=== PATIENT | female | born 1960 ===

== ENCOUNTER → 2018-10-01 09:10 | Outpatient (CLI) | payer OTHER, SELFPAY ==
--- NOTE | 2018-10-01 09:00 | DI.MG.S_ITS ---
Patient Name: KIT VAZQUEZ date: 1960 Sex: F Attending Physician: Maria G Indications: Date: 10/01/2018 09:35 At the request of: KEMI CARRIZALES Procedure: MM screening mammo BI BILATERAL DIGITAL SCREENING MAMMOGRAM 3D/2D WITH CAD: 10/01/2018 CLINICAL: Routine screening. Comparison is made to exams dated: 08/29/2017 mammogram, 07/12/2016 mammogram, and 06/13/2015 mammogram - [facility]. The tissue of both breasts is heterogeneously dense. This may lower the sensitivity of mammography. Current study was also evaluated with a Computer Aided Detection (CAD) system. There are benign calcifications in the left breast. No significant masses, calcifications, or other findings are seen in either breast. There has been no significant interval change. IMPRESSION: There is no mammographic evidence of malignancy. A 1 year screening mammogram is recommended. This exam was interpreted at Station ID: [id number]. NOTE: For mammograms, a report in lay terms will be sent to the patient. Approximately 15% of breast malignancies will not be visualized mammographically. In the management of a palpable breast mass, a negative mammogram must not discourage biopsy of a clinically suspicious lesion. Electronically Signed By: Manjeet schafer/guillermo:10/01/2018 10:09:18 copy to: KIT RODRIGUEZ letter sent: Normal Exam ACR BI-RADS Category 2: Benign Finding(s) 3342F Continued Report - Page 2 of 2 Patient Name: KIT VAZQUEZ date: 1960 Sex: F Attending Physician: Maria G Indications: Date: 10/01/2018 09:35 At the request of: KEMI CARRIZALES Procedure: MM screening mammo BI
== END ==
PROVIDERS: PCP Family Medicine; Visit Provider Family Medicine
DX: Z12.31 Encounter for screening mammogram for malignant neoplasm of breast (principal)
CPT/HCPCS: 77063; 77067

== ENCOUNTER 2019-01-24 14:17 | Emergency (ER) | payer OTHER, SELFPAY ==
[2019-01-24 14:52] VITALS: BP 120/79; PULSE 64; RESP 15; O2SAT 100
[2019-01-24 14:54] VITALS: BP 132/70; PULSE 64; RESP 15; TEMP 36.4; O2SAT 100
--- NOTE | 2019-01-24 15:03 | ED.WOUNDLAC ---
HPI - Wound/Laceration General Chief Complaint: Wound/Laceration Stated Complaint: Sliced opened pointer finger LT hand Time Seen by Provider: 01/24/19 15:01 Source: patient Mode of arrival: ambulatory Limitations: no limitations History of Present Illness HPI narrative: 58-year-old female comes to the emergency with complaint of avulsion injury to her 2nd finger on her left hand. 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 She has no numbness, she has no weakness. She has full range of motion. She states she has done similar injury in the past states her tetanus is up-to-date as the last 6-12 months. She states it is not particularly painful at this time. She denies any other injuries. She does take Plavix because of a heart attack. She does not have any stents. She denies any allergies. Related Data Home Medications Medication Instructions Recorded Confirmed atorvastatin 10 mg tablet 10 mg PO DAILY 10/20/18 10/20/18 clopidogrel 75 mg tablet 75 mg PO DAILY 10/20/18 10/20/18 hydroxychloroquine 200 mg tablet 200 mg PO DAILY tab 10/20/18 10/20/18 metoprolol tartrate 25 mg tablet 25 mg PO DAILY tab 10/20/18 10/20/18 nitroglycerin 0.4 mg sublingual 0.4 mg SL Q5-15M PRN 10/20/18 10/20/18 tablet Previous Rx's Medication Instructions Recorded clonazepam 0.5 mg tablet 0.5 mg PO BID PRN #10 tab 10/20/18 doxycycline hyclate 100 mg PO BID #20 cap 01/24/19 Allergies Allergy/AdvReac Type Severity Reaction Status Date / Time paraben Allergy Intermediate HIVES Unverified 10/20/18 10:59 Penicillins Allergy Intermediate hives Unverified 10/20/18 10:59 morphine Allergy Mild Unverified 10/20/18 10:59 Review of Systems Review of Systems ROS Unobtainable: All systems reviewed & are unremarkable except as noted in HPI and below Constitutional Denies weakness Musculoskeletal Reports as per HPI, Denies limited range of motion, Denies muscle weakness, Denies numbness, Denies stiffness, Denies tingling and Reports other (Avulsion injury right finger) Integumentary/Breasts Denies erythema, Denies rash, Denies unusual bruising and Reports wounds Neurologic Denies numbness, Denies sensory deficit, Denies tingling, Denies paresthesias and Denies weakness [facility] Medical History (Updated 01/24/19 @ 15:12 by Janie Glover DO) Myocardial infarction (Chronic) Surgical History History of angioplasty Status post appendectomy Status post hysterectomy Status post knee surgery Social History Smoking Status: Never smoker Social History Smoking Status: Never smoker Exam Narrative Exam Narrative: GENERAL: Alert and oriented x three, EXTREMITIES: Normal range of motion, no clubbing or edema. Neurovascularly intact. patient has an avulsion on the 2nd finger of her left hand. On the side of the finger between the 1st and 2nd distal joints. It is into the subcutaneous tissue, there is no bone or tendon involvement. Patient has full range of motion, she has normal sensation distally with cap refill less than 2 seconds. Area does bleed unless pressure is applied. NEUROLOGICAL: Cranial nerves II through XII grossly intact. Moving all extremities SKIN: Warm, dry, no petechiae, see above.. Initial Vital Signs Initial Vital Signs: Vital Signs Pulse Rate 64 01/24/19 14:52 Respiratory Rate 15 01/24/19 14:52 Blood Pressure 120/79 01/24/19 14:52 Pulse Oximetry 100 01/24/19 14:52 Course Vital Signs - 8 hr 01/24/19 14:52 01/24/19 14:54 Temperature 97.6 F Pulse Rate 64 64 Respiratory Rate 15 15 Blood Pressure 132/70 Blood Pressure [Right Arm] 120/79 Pulse Oximetry 100 100 MDM - Wound/Laceration MDM Narrative Medical decision making narrative: Nursing applied Gelfoam along with Kerlix and a pressure bandage. Patient and I discussed that she should leave that on until tomorrow morning. If she has any numbness or decrease in color she should loosen the bandage. 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 Patient pain is well controlled here. Discharge Plan Departure Patient Disposition: Home Clinical Impression: Laceration of finger Qualifiers: Encounter type: initial encounter Finger: index finger Damage to nail status: without damage Foreign body presence: without foreign body Laterality: left Qualified Code(s): S61.211A - Laceration without foreign body of left index finger without damage to nail, initial encounter Discharge Date/Time: 01/24/19 15:25 Interventions: ED Discharge Assessment Last Done: 01/24/19 15:24 Instructions: DI for Avulsion Laceration (Not Requiring Sutures) Activity Restrictions/Additional Instructions: Wound Care: Keep wound(s) clean and dry. Wash daily with soap and water only. Doxycycline was sent to [facility] in [place]. Take twice daily until gone. Do not use over the counter products (alcohol or peroxide)on the wounds unless instructed by a physician. You may apply Neosporin to the affected area 3 times daily as needed. If wound condition worsens (increased/expanding redness, developing fluid blisters, or worsening pain), either contact your doctor for an urgent re-assessment , or return to the Emergency Department. Return to the Emergency Department for any new or worsening symptoms. Return if fever greater than 100.4 Fahrenheit, increased swelling, increasing pain or worsening symptoms such as increased discharge or spreading redness. Use warm compresses 3 times daily for 20 minutes to the affected area. Prescriptions: New doxycycline hyclate 100 mg capsule 100 mg PO BID Qty: 20 RF: 0 No Action clopidogrel 75 mg tablet 75 mg PO DAILY RF: 0 hydroxychloroquine 200 mg tablet 200 mg PO DAILY RF: 0 metoprolol tartrate 25 mg tablet 25 mg PO DAILY RF: 0 atorvastatin 10 mg tablet 10 mg PO DAILY RF: 0 nitroglycerin 0.4 mg tablet, sublingual 0.4 mg SL Q5-15M PRNRF: 0 clonazepam 0.5 mg tablet 0.5 mg PO BID PRN (Reason: anxiety) Qty: 10 RF: 0 Referrals: Armando Stover MD [Primary Care Provider] -
--- NOTE | 2019-01-24 15:12 | ED_ITS ---
HPI - Wound/Laceration General Chief Complaint: Wound/Laceration Stated Complaint: Sliced opened pointer finger LT hand Time Seen by Provider: 01/24/19 15:01 Source: patient Mode of arrival: ambulatory Limitations: no limitations History of Present Illness HPI narrative: 58-year-old female comes to the emergency with complaint of avulsion injury to her 2nd finger on her left hand. 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 She has no numbness, she has no weakness. She has full range of motion. She states she has done similar injury in the past states her tetanus is up-to-date as the last 6-12 months. She states it is not particularly painful at this time. She denies any other injuries. She does take Plavix because of a heart attack. She does not have any stents. She denies any allergies. Related Data Home Medications Medication Instructions Recorded Confirmed atorvastatin 10 mg tablet 10 mg PO DAILY 10/20/18 10/20/18 clopidogrel 75 mg tablet 75 mg PO DAILY 10/20/18 10/20/18 hydroxychloroquine 200 mg tablet 200 mg PO DAILY tab 10/20/18 10/20/18 metoprolol tartrate 25 mg tablet 25 mg PO DAILY tab 10/20/18 10/20/18 nitroglycerin 0.4 mg sublingual 0.4 mg SL Q5-15M PRN 10/20/18 10/20/18 tablet Previous Rx's Medication Instructions Recorded clonazepam 0.5 mg tablet 0.5 mg PO BID PRN #10 tab 10/20/18 doxycycline hyclate 100 mg PO BID #20 cap 01/24/19 Allergies Allergy/AdvReac Type Severity Reaction Status Date / Time paraben Allergy Intermediate HIVES Unverified 10/20/18 10:59 Penicillins Allergy Intermediate hives Unverified 10/20/18 10:59 morphine Allergy Mild Unverified 10/20/18 10:59 Review of Systems Review of Systems ROS Unobtainable: All systems reviewed & are unremarkable except as noted in HPI and below Constitutional Denies weakness Musculoskeletal Reports as per HPI, Denies limited range of motion, Denies muscle weakness, Denies numbness, Denies stiffness, Denies tingling and Reports other (Avulsion injury right finger) Integumentary/Breasts Denies erythema, Denies rash, Denies unusual bruising and Reports wounds Neurologic Denies numbness, Denies sensory deficit, Denies tingling, Denies paresthesias and Denies weakness [facility] Medical History (Updated 01/24/19 @ 15:12 by Janie Glover DO) Myocardial infarction (Chronic) Surgical History History of angioplasty Status post appendectomy Status post hysterectomy Status post knee surgery Social History Smoking Status: Never smoker Social History Smoking Status: Never smoker Exam Narrative Exam Narrative: GENERAL: Alert and oriented x three, EXTREMITIES: Normal range of motion, no clubbing or edema. Neurovascularly intact. patient has an avulsion on the 2nd finger of her left hand. On the side of the finger between the 1st and 2nd distal joints. It is into the subcutaneous tissue, there is no bone or tendon involvement. Patient has full range of motion, she has normal sensation distally with cap refill less than 2 seconds. Area does bleed unless pressure is applied. NEUROLOGICAL: Cranial nerves II through XII grossly intact. Moving all extremities SKIN: Warm, dry, no petechiae, see above.. Initial Vital Signs Initial Vital Signs: Vital Signs Pulse Rate 64 01/24/19 14:52 Respiratory Rate 15 01/24/19 14:52 Blood Pressure 120/79 01/24/19 14:52 Pulse Oximetry 100 01/24/19 14:52 Course Vital Signs - 8 hr 01/24/19 14:52 01/24/19 14:54 Temperature 97.6 F Pulse Rate 64 64 Respiratory Rate 15 15 Blood Pressure 132/70 Blood Pressure [Right Arm] 120/79 Pulse Oximetry 100 100 MDM - Wound/Laceration MDM Narrative Medical decision making narrative: Nursing applied Gelfoam along with Kerlix and a pressure bandage. Patient and I discussed that she should leave that on until tomorrow morning. If she has any numbness or decrease in color she should loosen the bandage. 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 Patient pain is well controlled here. Discharge Plan Departure Patient Disposition: Home Clinical Impression: Laceration of finger Qualifiers: Encounter type: initial encounter Finger: index finger Damage to nail status: without damage Foreign body presence: without foreign body Laterality: left Qualified Code(s): S61.211A - Laceration without foreign body of left index finger without damage to nail, initial encounter Discharge Date/Time: 01/24/19 15:25 Interventions: ED Discharge Assessment Last Done: 01/24/19 15:24 Instructions: DI for Avulsion Laceration (Not Requiring Sutures) Activity Restrictions/Additional Instructions: Wound Care: Keep wound(s) clean and dry. Wash daily with soap and water only. Doxycycline was sent to [facility] in [place]. Take twice daily until gone. Do not use over the counter products (alcohol or peroxide)on the wounds unless instructed by a physician. You may apply Neosporin to the affected area 3 times daily as needed. If wound condition worsens (increased/expanding redness, developing fluid blisters, or worsening pain), either contact your doctor for an urgent re- assessment , or return to the Emergency Department. Return to the Emergency Department for any new or worsening symptoms. Return if fever greater than 100.4 Fahrenheit, increased swelling, increasing pain or worsening symptoms such as increased discharge or spreading redness. Use warm compresses 3 times daily for 20 minutes to the affected area. Prescriptions: New doxycycline hyclate 100 mg capsule 100 mg PO BID Qty: 20 RF: 0 No Action clopidogrel 75 mg tablet 75 mg PO DAILY RF: 0 hydroxychloroquine 200 mg tablet 200 mg PO DAILY RF: 0 metoprolol tartrate 25 mg tablet 25 mg PO DAILY RF: 0 atorvastatin 10 mg tablet 10 mg PO DAILY RF: 0 nitroglycerin 0.4 mg tablet, sublingual 0.4 mg SL Q5-15M PRNRF: 0 clonazepam 0.5 mg tablet 0.5 mg PO BID PRN (Reason: anxiety) Qty: 10 RF: 0 Referrals: Armando Stover MD [Primary Care Provider] -
--- NOTE | 2019-01-24 15:23 | PC.NURSE ---
applied non stick dressing and tube guaze to cover. Pt tolerated well. Instructed on wound care.
== END 2019-01-24 15:25 | disposition home or self-care (01) ==
PROVIDERS: Emergency Provider Emergency Medicine; PCP Student in an Organized Health Care Education/Training Program
DX: S61.211A Laceration without foreign body of left index finger without damage to nail, initial encounter (principal); W26.8XXA Contact with other sharp object(s), not elsewhere classified, initial encounter
CPT/HCPCS: 99283

== ENCOUNTER → 2020-05-13 15:13 | Outpatient (CLI) | payer OTHER, SELFPAY ==
--- NOTE | 2020-05-13 | DI.MG.S_ITS ---
BILATERAL DIGITAL SCREENING MAMMOGRAM 3D/2D WITH CAD: 05/13/2020 CLINICAL: Routine screening. Comparison is made to exams dated: 10/01/2018 mammogram, 08/29/2017 mammogram, 07/12/2016 mammogram, 06/13/2015 mammogram, 05/10/2014 mammogram, and 02/22/2013 mammogram - [facility]. The tissue of both breasts is heterogeneously dense. This may lower the sensitivity of mammography. Current study was also evaluated with a Computer Aided Detection (CAD) system. No significant masses, calcifications, or other findings are seen in either breast. There has been no significant interval change. IMPRESSION: NEGATIVE There is no mammographic evidence of malignancy. A 1 year screening mammogram is recommended. This exam was interpreted at Station ID: [id number]. NOTE: For mammograms, a report in lay terms will be sent to the patient. Approximately 15% of breast malignancies will not be visualized mammographically. In the management of a palpable breast mass, a negative mammogram must not discourage biopsy of a clinically suspicious lesion. Electronically Signed By: Mark king/guillermo:05/15/2020 08:46:03 copy to: KIT RODRIGUEZ letter sent: Normal Exam ACR BI-RADS Category 1: Negative 3341F
== END ==
PROVIDERS: PCP Student in an Organized Health Care Education/Training Program; Referring Provider Student in an Organized Health Care Education/Training Program; Visit Provider Obstetrics & Gynecology Gynecology
DX: Z12.31 Encounter for screening mammogram for malignant neoplasm of breast (principal)
CPT/HCPCS: 77063; 77067

== ENCOUNTER → 2021-03-15 12:13 | Outpatient (CLI) | payer OTHER, SELFPAY ==
[2021-03-15 13:35] LABS: Add Manual Diff / Slide Review NO; Basophils Absolute Auto 0 /uL (0-100); Basophils Percent Auto 0.6 % (0-2); Eosinophils Absolute Auto 0 /uL (0-450); Eosinophils Percent Auto 0.9 % (2-4); Hematocrit 37.3 % (36-46); Hemoglobin 12.4 g/dL (12.0-16.0); Lymphocytes Absolute Auto 1200 /uL (1100-4500); Lymphocytes Percent Auto 22.7 % (25-40); Mean Corpuscular HGB Conc 33.3 % (30-36); Mean Corpuscular Hemoglobin 31.1 PG (26-34); Mean Corpuscular Volume 93.5 fL (80-100); Monocytes Absolute Auto 500 /uL (0-900); Monocytes Percent Auto 9.9 % (3-14); Neutrophils Absolute Auto 3600 /uL (1500-7000); Neutrophils Percent Auto 65.9 % (50-75); Platelet Count 195 X10^3/uL (150-400); Red Blood Cell Count 3.99 X10^6/uL (4.0-5.2); Red Cell Distribution Width 12.6 % (11.6-14.8); White Blood Cell Count 5.4 X10^3/uL (4.5-11.0)
[2021-03-15 13:47] LABS: BUN Creatinine Ratio 25.5 (6-22); Blood Urea Nitrogen 14 mg/dL (7-17); Calcium 9.6 mg/dL (8.4-10.2); Carbon Dioxide 28 mmol/L (22-32); Chloride 104 mmol/L (98-107); Creatine Kinase 159 U/L (30-135); Estimated Glomerular Filt Rate > 60.0 mL/min (>60); Glucose 90 mg/dL (80-110); HEMOLYSIS < 15 (0-50); Potassium 4.1 mmol/L (3.4-5.1); Sodium 139 mmol/L (137-145)
[2021-03-15 14:01] LABS: CKMB % Relative Index 1.4 % (1.5-5.0); Creatine Kinase MB 2.22 ng/mL (<2.37)
== END ==
PROVIDERS: PCP Student in an Organized Health Care Education/Training Program; Referring Provider Student in an Organized Health Care Education/Training Program; Visit Provider Student in an Organized Health Care Education/Training Program
DX: I72.0 Aneurysm of carotid artery (principal); I77.71 Dissection of carotid artery; R07.9 Chest pain, unspecified; R23.1 Pallor; R25.2 Cramp and spasm
CPT/HCPCS: 36415; 80048; 82550; 82553; 83735; 84443; 85025

== ENCOUNTER → 2021-07-30 08:34 | Outpatient (CLI) | payer OTHER, SELFPAY ==
--- NOTE | 2021-07-30 | DI.MG.S_ITS ---
BILATERAL DIGITAL SCREENING MAMMOGRAM 3D/2D WITH CAD: 07/30/2021 CLINICAL: Routine screening. Comparison is made to exams dated: 05/13/2020 mammogram, 10/01/2018 mammogram, and 08/29/2017 mammogram - [facility]. The tissue of both breasts is heterogeneously dense. This may lower the sensitivity of mammography. Current study was also evaluated with a Computer Aided Detection (CAD) system. No significant masses, calcifications, or other findings are seen in either breast. There has been no significant interval change. IMPRESSION: NEGATIVE There is no mammographic evidence of malignancy. A 1 year screening mammogram is recommended. This exam was interpreted at Station ID: [id number]. NOTE: For mammograms, a report in lay terms will be sent to the patient. Approximately 15% of breast malignancies will not be visualized mammographically. In the management of a palpable breast mass, a negative mammogram must not discourage biopsy of a clinically suspicious lesion. Electronically Signed By: Max trevizo/guillermo:07/30/2021 09:58:36 copy to: KIT RODRIGUEZ letter sent: Normal Exam ACR BI-RADS Category 1: Negative 3341F
== END ==
PROVIDERS: PCP Student in an Organized Health Care Education/Training Program; Referring Provider Student in an Organized Health Care Education/Training Program; Visit Provider Student in an Organized Health Care Education/Training Program
DX: Z12.31 Encounter for screening mammogram for malignant neoplasm of breast (principal)
CPT/HCPCS: 77063; 77067

== ENCOUNTER → 2021-10-29 13:34 | Outpatient (CLI) | payer OTHER, SELFPAY ==
--- NOTE | 2021-10-29 13:35 | DI.RAD.S_ITS ---
PROCEDURE: XR WRIST RT MIN 3V INDICATIONS: second fall x 2 weeks TECHNIQUE: 4 views of the wrist were acquired. COMPARISON: None. FINDINGS: Bones: No fractures or dislocations. No suspicious bony lesions. Degenerative changes are seen, which are worst involving the radial aspect of the carpus. Scaphoid view: No navicular fractures are seen. Soft tissues: No suspicious soft tissue calcifications. IMPRESSION: No displaced fractures are seen. If there is snuffbox tenderness (or other clinical suspicion for a fracture not seen on these images) then a repeat examination would be recommended in 10 to 14 days, following splinting. Dictated by: David Hicks M.D. on 10/29/2021 at 12:58 Approved by: David Hicks M.D. on 10/29/2021 at 12:59
--- NOTE | 2021-10-29 15:56 | DI.RAD.S_ITS ---
PROCEDURE: XR FOREARM RT 2V INDICATIONS: forearm pain TECHNIQUE: 2 views of the forearm were acquired. COMPARISON: None. FINDINGS: Bones: No fractures or dislocations. No suspicious bony lesions. Soft tissues: No suspicious soft tissue calcifications or masses. IMPRESSION: No visualized acute fracture or dislocation. However, if clinical concern and/or pain persist, short interval imaging followup in 7-10 days is recommended, as occult injury cannot be definitively excluded. Dictated by: Minna Dunn M.D. on 10/29/2021 at 16:24 Approved by: Minna Dunn M.D. on 10/29/2021 at 16:24
== END ==
PROVIDERS: PCP Student in an Organized Health Care Education/Training Program; Referring Provider Nurse Practitioner Family; Visit Provider Nurse Practitioner Family
DX: M25.531 Pain in right wrist (principal); S59.911A Unspecified injury of right forearm, initial encounter; W19.XXXA Unspecified fall, initial encounter
CPT/HCPCS: 73090; 73110

== ENCOUNTER 2022-07-31 08:23 | Emergency (ER) | payer OTHER, SELFPAY ==
[2022-07-31 08:34] VITALS: BP 143/89; PULSE 76; RESP 18; TEMP 36.3; O2SAT 100; BMI 19.8
--- NOTE | 2022-07-31 08:39 | PC.NURSE ---
pt states she is having pain on the right side of her face, points to in front of her right ear and then down to the corner of her mandible then to her chin. pt states she has taken tylenol and it did not touch the pain, she is unable to take ibuprofen due to her blood thinner. heat improves pain, ice to the face makes it worse as well as talking or movement of the jaw. she had appointment with PCP but they canceled and she couldn't take it another day
--- NOTE | 2022-07-31 08:56 | ED_ITS ---
HPI - General Adult General Chief complaint: Dental/Oral Stated complaint: facial pain RT side started 07/03 Time Seen by Provider: 07/31/22 08:30 Source: patient Mode of arrival: Ambulatory History of Present Illness HPI narrative: Patient is a 61-year-old female who is here for evaluation of right-sided facial pain. She states that has been going on for approximately 1 month. She states that it initially started when she was at work. She was talking with someone when she had a sudden intense pain in her right jaw. The pain does last for seconds. Since that time it has become more frequent but also less intense. Cold seems to make it worse. Heat makes it better. Chewing makes it worse. She has no ear pain. No sinus congestion. No vision changes. No skin rashes. No problems breathing. No problems swallowing. Has not tried anything for the symptoms. A couple days after the symptoms started she had a dental appoi ntment. She stated the dentist told her that there was no infection. He stated that this was most likely TMJ. She had an appointment with her primary doctor today however this appointment was canceled by the clinic and because of her discomfort she thought she should come to the emergency department. Related Data Home Medications Medication Instructions Recorded Confirmed atorvastatin 10 mg tablet 10 mg PO DAILY 10/20/18 10/29/21 clopidogrel 75 mg tablet 75 mg PO DAILY 10/20/18 10/29/21 metoprolol tartrate 25 mg tablet 25 mg PO DAILY 10/20/18 10/29/21 nitroglycerin 0.4 mg sublingual 0.4 mg sublingual Q5-15M PRN 10/20/18 10/29/21 tablet hydroxychloroquine 200 mg tablet 400 mg PO DAILY 06/13/20 10/29/21 Previous Rx's Medication Instructions Recorded clonazepam 0.5 mg tablet 0.5 mg PO BID PRN anxiety #10 tabs 10/20/18 diclofenac sodium 3 % topical gel 2 g topical QID PRN pain #100 grams 11/09/20 doxycycline hyclate 100 mg capsule 100 mg PO BID #20 caps 10/01/21 sumatriptan succinate 25 mg tablet See Rx Instructions PO .COMPLEX #9 05/28/22 tabs carbamazepine 100 mg 100 mg PO BID #60 tabs 07/31/22 tablet,extended release,12 hr hydrocodone 5 mg-acetaminophen 325 1 tab PO Q6H PRN pain #14 tabs 07/31/22 mg tablet Allergies Allergy/AdvReac Type Severity Reaction Status Date / Time paraben Allergy Intermediate HIVES Verified 10/29/21 15:09 Penicillins Allergy Intermediate hives Verified 10/29/21 15:09 morphine Allergy Mild Verified 10/29/21 15:09 Review of Systems Constitutional Constitutional: Denies chills, Denies fever(s) and Denies headache(s) Eyes Eyes: Denies blurry vision, Denies irritation, Denies itchy eyes and Denies loss of vision ENT Ears, Nose, Mouth, and Throat: Denies vertigo, Denies dizziness, Denies dry yonny th, Reports facial pain, Denies headache(s), Denies hearing loss, Denies lip swelling, Denies nasal discharge, Denies neck mass, Denies neck pain, Denies tinnitus, Denies sinus pain, Denies sore throat and Denies throat swelling Cardiovascular Cardiovascular: Denies chest pain and Denies dyspnea Respiratory Respiratory: Denies dyspnea Musculoskeletal Musculoskeletal: Denies neck pain Integumentary/Breasts Skin/Breast: Denies rash Neurologic Neurologic: Denies vertigo, Denies dizziness, Denies headache(s) and Denies loss of vision Hematologic/Lymphatic On Anticoagulants: No Allergic/Immunologic Allergic/Immunologic: Denies itchy eyes, Denies lip swelling and Denies throat swelling Patient History Medical History Dissecting aneurysm of carotid artery Myocardial infarction Surgical History History of angioplasty Status post appendectomy Status post hysterectomy Status post knee surgery Social History Smoking Status: Never smoker Smoking Status: Never smoker Substance Use Type: does not use Exam Initial Vital Signs Initial Vital Signs: Vital Signs Temperature 97.3 F L 07/31/22 08:34 Pulse Rate 76 07/31/22 08:34 Respiratory Rate 18 07/31/22 08:34 Blood Pressure 143/89 H 07/31/22 08:34 Pulse Oximetry 100 07/31/22 08:34 Oxygen Delivery Method 07/31/22 08:34 Const General: cooperative, comfortable, well developed and No ill appearing HENMT Head: normal to inspection, normocephalic, atraumatic and No scalp lesion Ears: hearing grossly normal bilaterally, TM's normal bilaterally and EAC's normal Nose: external nose normal and nares normal Face and sinus: face symmetric, no crepitus, no ecchymosis, no edema, no fluctuance and tenderness on the right mandible and angle of jaw Mouth: oral mucosae normal and moist mucous membranes Teeth and gingiva: no caries and dentition not poor Throat: posterior oropharynx normal and uvula midline HENMT Other: Tenderness over TMJ. No tenderness over temporal artery Eyes General: Yes appearance normal, both eyes and all related structures Pupils: PERRL EOM: EOM intact bilaterally Neck Neck: normal visual inspection, trachea midline and No submandibular swelling Lymphatic: No lymphadenopathy Resp Effort & Inspection: normal respiratory effort Cardio Rate: regular rate Skin General: no rashes or lesions noted Neuro General: patient alert, patient awake, oriented and moves all extremities Cranial Nerves: CN's II-XI intact bilaterally Speech: speech normal Gait: normal gait Extrem General: normal to inspection Course Orders Ordered: ED Orders 07/31/22 08:52 Basic Metabolic Panel Stat C-Reactive Protein Quant Stat Complete Blood Count AUTO DIFF Stat Erythrocyte Sedimentation Rate Stat Vital Signs Vital signs: Vital Signs - 8 hr 07/31/22 08:34 Temperature 97.3 F L Pulse Rate 76 Respiratory Rate 18 Blood Pressure 143/89 H Pulse Oximetry 100 Oxygen Delivery Method Room Air Medical Decision Making Medical Records Medical records reviewed: Yes I reviewed the patient's medical records. Lab Data Lab results reviewed: Yes I reviewed the patient's lab results. Result diagrams: 07/31/22 09:03 07/31/22 09:03 Labs: Lab Results 07/31/22 07/31/22 Range/Units 09:03 09:03 WBC 4.2 L (4.5-11.0) X10^3/uL RBC 4.06 (4.0-5.2) X10^6/uL Hgb 12.8 (12.0-16.0) g/dL Hct 37.6 (36-46) % MCV 92.6 (80-100) fL MCH 31.5 (26-34) PG MCHC 34.0 (30-36) % RDW 12.7 (11.6-14.8) % Plt Count 188 (150-400) X10^3/uL Neut % (Auto) 63.9 (50-75) % Lymph % (Auto) 24.3 L (25-40) % [place] % (Auto) 9.3 (3-14) % Eos % (Auto) 1.6 L (2-4) % Baso % (Auto) 0.9 (0-2) % Neut # (Auto) 2700 (4042-8365) /uL Lymph # (Auto) 1000 L (1008-7697) /uL [place] # (Auto) 400 (0-900) /uL Eos # (Auto) 100 (0-450) /uL Baso # (Auto) 0 (0-100) /uL ESR 5 (0-20) MM/HR Sodium 139 (137-145) mmol/L Potassium 4.1 (3.4-5.1) mmol/L Chloride 101 (98-107) mmol/L Carbon Dioxide 31 (22-32) mmol/L BUN 18 H (7-17) mg/dL Creatinine 0.61 (0.52-1.04) mg/dL Estimated GFR > 60 (>60) mL/min BUN/Creatinine Ratio 29.5 H (6-22) Glucose 90 (80-110) mg/dL Calcium 9.3 (8.4-10.2) mg/dL C-Reactive Protein < 0.5 (<1.0) mg/dL MDM Narrative Medical decision making narrative: She has had approximately 1 month of isolated right-sided TMJ/mandibular pain. Her physical exam is consistent with trigeminal neuralgia. She is having recurrent paroxysms of facial pain in the distribution of the mandibular branch of the trigeminal nerve. They do last only seconds. There very severe. They occur with very little stimuli. There is no other indication of a dental infection, zoster, CVA, parotitis, upper respiratory infection, or another etiology. I did have a discussion with her regarding this. The plan will be is to start her on medications for this. She understands this medication may need to be adjusted. She also understands that she needs to follow with her primary doctor to discuss an MRI. She was given return precautions. She expressed understanding and agreement. Discharge Plan Departure Patient Disposition: Home Clinical Impression: Right trigeminal neuralgia Instructions: DI for Trigeminal Neuralgia Activity Restrictions/Additional Instructions: I do recommend that you follow-up with your primary doctor as you may need further workup to include adjustment of the medication that we started today and also potentially an MRI or other specialist referrals. Continue all of your other medications as directed. Return to emergency department for any new or worsening symptoms. Prescriptions: New carbamazepine 100 mg tablet extended release 12 hr 100 mg PO BID Qty: 60 2RF hydrocodone-acetaminophen 5-325 mg tablet 1 tab PO Q6H PRN (Reason: pain) Qty: 14 0RF No Action hydroxychloroquine 200 mg tablet 400 mg PO DAILY diclofenac sodium 3 % gel 2 g TOP QID PRN (Reason: pain) Qty: 100 3RF Rx Instructions: apply to single elbow, wrist or hand; for hand includes palm/fingers/back of hand sumatriptan succinate 25 mg tablet See Rx Instructions PO .COMPLEX Qty: 9 11RF Rx Instructions: take 1 tab at onset of headache; if no relief may repeat 1 tab after at least 2 hrs; max = 4 tabs/24 hr PO clopidogrel 75 mg tablet 75 mg PO DAILY metoprolol tartrate 25 mg tablet 25 mg PO DAILY atorvastatin 10 mg tablet 10 mg PO DAILY nitroglycerin 0.4 mg tablet, sublingual 0.4 mg SL Q5-15M PRN clonazepam 0.5 mg tablet 0.5 mg PO BID PRN (Reason: anxiety) Qty: 10 0RF doxycycline hyclate 100 mg capsule 100 mg PO BID Qty: 20 0RF Referrals: Armando Stover MD [Primary Care Provider] -
[2022-07-31 09:07] LABS: Add Manual Diff / Slide Review NO; Basophils Absolute Auto 0 /uL (0-100); Basophils Percent Auto 0.9 % (0-2); Eosinophils Absolute Auto 100 /uL (0-450); Eosinophils Percent Auto 1.6 % (2-4); Hematocrit 37.6 % (36-46); Hemoglobin 12.8 g/dL (12.0-16.0); Lymphocytes Absolute Auto 1000 /uL (1100-4500); Lymphocytes Percent Auto 24.3 % (25-40); Mean Corpuscular Hemoglobin 31.5 PG (26-34); Mean Corpuscular Volume 92.6 fL (80-100); Monocytes Absolute Auto 400 /uL (0-900); Monocytes Percent Auto 9.3 % (3-14); Neutrophils Absolute Auto 2700 /uL (1500-7000); Neutrophils Percent Auto 63.9 % (50-75); Platelet Count 188 X10^3/uL (150-400); Red Blood Cell Count 4.06 X10^6/uL (4.0-5.2); Red Cell Distribution Width 12.7 % (11.6-14.8); White Blood Cell Count 4.2 X10^3/uL (4.5-11.0)
[2022-07-31 09:24] LABS: BUN Creatinine Ratio 29.5 (6-22); Blood Urea Nitrogen 18 mg/dL (7-17); C-Reactive Protein Quant < 0.5 mg/dL (<1.0); Calcium 9.3 mg/dL (8.4-10.2); Carbon Dioxide 31 mmol/L (22-32); Chloride 101 mmol/L (98-107); Estimated Glomerular Filt Rate > 60 mL/min (>60); Glucose 90 mg/dL (80-110); HEMOLYSIS 17 (0-50); Potassium 4.1 mmol/L (3.4-5.1); Sodium 139 mmol/L (137-145)
[2022-07-31 09:29] LABS: Erythrocyte Sedimentation Rate 5 MM/HR (0-20)
== END 2022-07-31 10:16 | disposition home or self-care (01) ==
PROVIDERS: Emergency Provider Emergency Medicine; PCP Student in an Organized Health Care Education/Training Program
DX: G50.0 Trigeminal neuralgia (principal)
CPT/HCPCS: 36415; 80048; 85025; 85651; 86140; 99283

== ENCOUNTER → 2022-09-12 10:43 | Outpatient (CLI) | payer OTHER, SELFPAY ==
--- NOTE | 2022-09-12 10:44 | DI.MG.S_ITS ---
BILATERAL DIGITAL SCREENING MAMMOGRAM 3D/2D WITH CAD: 09/12/2022 CLINICAL: Routine screening. Comparison is made to exams dated: 07/30/2021 mammogram, 05/13/2020 mammogram, and 10/01/2018 mammogram - [facility]. Both breasts are heterogeneously dense, which may obscure small masses (category c / 51-75% glandular tissue). Current study was also evaluated with a Computer Aided Detection (CAD) system. No significant masses, calcifications, or other findings are seen in either breast. There has been no significant interval change. IMPRESSION: NEGATIVE There is no mammographic evidence of malignancy. A 1 year screening mammogram is recommended. Based on the Tyrer Cuzick model (a risk assessment model) the patient's lifetime risk is 8.3% and her 10 year risk is 3.7%. According to the ACR, ACS, and NCCN guidelines, an annual breast MRI exam along with mammogram is recommended if the patient's lifetime risk is 20% or greater. This exam was interpreted at Station ID: [id number]. NOTE: For mammograms, a report in lay terms will be sent to the patient. Approximately 15% of breast malignancies will not be visualized mammographically. In the management of a palpable breast mass, a negative mammogram must not discourage biopsy of a clinically suspicious lesion. Electronically Signed By: Hasmukh Simmons M.D., jr/guillermo:09/12/2022 11:41:21 copy to: KIT RODRIGUEZ letter sent: Normal Exam ACR BI-RADS Category 1: Negative 3341F
== END ==
PROVIDERS: PCP Student in an Organized Health Care Education/Training Program; Referring Provider Physician Assistant; Visit Provider Physician Assistant
DX: Z12.31 Encounter for screening mammogram for malignant neoplasm of breast (principal)
CPT/HCPCS: 77063; 77067

== ENCOUNTER → 2023-04-22 17:04 | Outpatient (CLI) | payer OTHER, SELFPAY ==
--- NOTE | 2023-04-22 | DI.RAD.S_ITS ---
PROCEDURE: XR CERVICAL SPINE 4V OR 5V INDICATIONS: HEADACHES TECHNIQUE: 5 views of the cervical spine acquired. COMPARISON: None. FINDINGS: Bones: No fractures or dislocations to the T1 level. Oblique images show foraminal stenosis at C3-4 on the right and C3-4, C5-6 and C6-7 as well as C7-T1 on the left. Disc space narrowing hypertrophic facet joints noted in the mid to lower cervical spine Soft tissues: No prevertebral soft tissue swelling. 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 on 04/22/2023 at 19:14
== END ==
PROVIDERS: PCP Student in an Organized Health Care Education/Training Program; Referring Provider Physician Assistant; Visit Provider Physician Assistant
DX: G43.909 Migraine, unspecified, not intractable, without status migrainosus (principal); M50.31 Other cervical disc degeneration, high cervical region; M47.812 Spondylosis without myelopathy or radiculopathy, cervical region; M48.02 Spinal stenosis, cervical region
CPT/HCPCS: 72050

== ENCOUNTER → 2023-09-08 15:59 | Outpatient (CLI) | payer OTHER, SELFPAY ==
--- NOTE | 2023-09-08 | DI.MG.S_ITS ---
BILATERAL DIGITAL SCREENING MAMMOGRAM 3D/2D WITH CAD: 09/08/2023 CLINICAL: Routine screening. Comparison is made to exams dated: 09/12/2022 mammogram, 05/13/2020 mammogram, and 07/30/2021 mammogram - [facility]. Both breasts are heterogeneously dense, which may obscure small masses (category c / 51-75% glandular tissue). Current study was also evaluated with a Computer Aided Detection (CAD) system. There is a possible developing irregular high density asymmetry in the right breast at 11 o'clock posterior depth. No other significant masses, calcifications, or other findings are seen in either breast. IMPRESSION: INCOMPLETE: NEEDS ADDITIONAL IMAGING EVALUATION The possible developing irregular high density asymmetry in the right breast is indeterminate. A diagnostic mammogram and ultrasound is recommended. Based on the Tyrer Cuzick model (a risk assessment model) the patient's lifetime risk is 8.0% and her 10 year risk is 3.7%. According to the ACR, ACS, and NCCN guidelines, an annual breast MRI exam along with mammogram is recommended if the patient's lifetime risk is 20% or greater. This exam was interpreted at Station ID: [id number]. NOTE: For mammograms, a report in lay terms will be sent to the patient. Approximately 15% of breast malignancies will not be visualized mammographically. In the management of a palpable breast mass, a negative mammogram must not discourage biopsy of a clinically suspicious lesion. Electronically Signed By: Daphnie mendoza/guillermo:09/09/2023 09:19:50 copy to: KIT RODRIGUEZ letter sent: Additional Imaging Needed ACR BI-RADS Category 0: Incomplete 3340F
== END ==
PROVIDERS: PCP Nurse Practitioner Women's Health; Referring Provider Physician Assistant; Visit Provider Physician Assistant
DX: Z12.31 Encounter for screening mammogram for malignant neoplasm of breast (principal)
CPT/HCPCS: 77063; 77067

== ENCOUNTER → 2024-01-01 08:47 | Outpatient (CLI) | payer MEDICARE, SELFPAY ==
--- NOTE | 2024-01-01 | DI.US.S_ITS ---
LIMITED ULTRASOUND OF RIGHT BREAST: 01/01/2024 CLINICAL: Patient returns today to evaluate a focal asymmetry in the right breast. Comparison is made to exams dated: 01/01/2024 mammogram, 09/08/2023 mammogram, 09/12/2022 mammogram, and 07/30/2021 mammogram - [facility]. Real-time ultrasound of the right breast 9-11 o'clock region was performed. Dong scale images of the real-time examination were reviewed. No significant abnormalities were seen sonographically in the right breast. Specifically, no finding to correspond to the patient's resolved screening mammographic abnormality. IMPRESSION: NEGATIVE There is no sonographic correlate to the patient's resolved screening mammography finding and no evidence of malignancy. Return to annual mammogram screening schedule is recommended. Findings and recommendations were conveyed to the patient at time of exam. This exam was interpreted at Station ID: [id number]. Electronically Signed By: Daphnie mendoza/:01/01/2024 09:44:31 copy to: KIT RODRIGUEZ letter sent: Normal Exam Ultrasound BI-RADS: 1 Negative
--- NOTE | 2024-01-01 | DI.MG.S_ITS ---
UNILATERAL RIGHT DIGITAL DIAGNOSTIC MAMMOGRAM 3D/2D WITH ADDITIONAL VIEWS: 01/01/2024 CLINICAL: Additional evaluation requested from prior study. Comparison is made to exams dated: 09/08/2023 mammogram, 09/12/2022 mammogram, 07/30/2021 mammogram, and 05/13/2020 mammogram - [facility]. The right breast is heterogeneously dense, which may obscure small masses (category c / 51-75% glandular tissue). With focal spot compression, and additional views, the abnormality seen in the right breast at 11 o'clock in the middle depth on screening mammography resolves. No significant masses, calcifications, or other findings are seen in the breast. IMPRESSION: INCOMPLETE: NEEDS ADDITIONAL IMAGING EVALUATION Resolution of screening mammography abnormality with additional views. Ultrasound evaluation to confirm resolution is recommended and was performed immediately following this exam. Based on the Tyrer Cuzick model (a risk assessment model) the patient's lifetime risk is 7.7% and her 10 year risk is 3.7%. According to the ACR, ACS, and NCCN guidelines, an annual breast MRI exam along with mammogram is recommended if the patient's lifetime risk is 20% or greater. This exam was interpreted at Station ID: [id number]. NOTE: For mammograms, a report in lay terms will be sent to the patient. Approximately 15% of breast malignancies will not be visualized mammographically. In the management of a palpable breast mass, a negative mammogram must not discourage biopsy of a clinically suspicious lesion. Electronically Signed By: Daphnie mendoza/:01/01/2024 09:32:06 copy to: KIT RODRIGUEZ ACR BI-RADS Category 0: Incomplete [id number]
== END ==
LOC: MAMMO 08:48
PROVIDERS: PCP Physician Assistant; Referring Provider Physician Assistant
DX: R92.8 Other abnormal and inconclusive findings on diagnostic imaging of breast (principal); R92.333 Mammographic heterogeneous density, bilateral breasts
CPT/HCPCS: 76642; 77065; G0279

== ENCOUNTER → 2024-09-20 11:49 | Outpatient (CLI) | payer MEDICARE, OTHER, SELFPAY ==
--- NOTE | 2024-09-20 11:55 | DI.RAD.S_ITS ---
PROCEDURE: XR HAND LT MIN 3V INDICATIONS: CHRONIC PAIN OF LEFT THUMB TECHNIQUE: 3 views of the hand(s) acquired. COMPARISON: None. FINDINGS: Diffuse osseous demineralization. No acute fracture or dislocation. 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 Soft tissue prominence along the radial aspect of the thumb CMC joint. 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 Based on the history, this finding may represent a posttraumatic ganglion cyst. Dictated by: Juan Rahman M.D. on 09/20/2024 at 16:01 Approved by: Juan Rahman M.D. on 09/20/2024 at 16:03
== END ==
PROVIDERS: PCP Physician Assistant; Referring Provider Physician Assistant; Visit Provider Physician Assistant
DX: M18.12 Unilateral primary osteoarthritis of first carpometacarpal joint, left hand (principal); M19.032 Primary osteoarthritis, left wrist; M79.645 Pain in left finger(s); G89.29 Other chronic pain
CPT/HCPCS: 73130

== ENCOUNTER → 2025-08-05 12:02 | Outpatient (CLI) | payer MEDICARE, OTHER, SELFPAY ==
[2025-08-05 13:15] LABS: Blood Urea Nitrogen 15 mg/dL (7-17); Calcium 9.6 mg/dL (8.4-10.2); Carbon Dioxide 27 mmol/L (22-32); Chloride 97 mmol/L (98-107); Estimated Glomerular Filt Rate > 60 mL/min (>60); Glucose 115 mg/dL (70-99); HEMOLYSIS < 15 (0-50); Potassium 4.5 mmol/L (3.4-5.1); Sodium 134 mmol/L (137-145)
== END ==
LOC: LAB 12:05
PROVIDERS: PCP Physician Assistant; Referring Provider Physician Assistant; Visit Provider Physician Assistant
DX: R11.0 Nausea (principal)
CPT/HCPCS: 36415; 80048